=== PATIENT | female | born 1935 | race Caucasian/White ===

== ENCOUNTER 2016-12-07 15:47 | Emergency (ER) | payer MEDICARE ==
[2016-12-07] MEDS ORDERED: ONDANSETRON 4 MG/2ML 2 ML VIAL ONE ×2 (17:05→18:00)
[2016-12-07] MEDS ORDERED: SODIUM CHLORIDE 0.9% 1,000 ML ONE ×2 (17:05→18:41)
[2016-12-07] MEDS ORDERED: MORPHINE SULFATE 4 MG/ML SYRINGE ONE (17:05)
[2016-12-07 17:35] LABS: ABSOLUTE NEUTROPHIL COUNT 5.1 K/mm3 (1.8-7.7); BASO % 0.1 % (0.2-1.0); EOS % 0.5 % (0.9-2.9); HEMATOCRIT 36.7 % (37.0-47.0); HEMOGLOBIN 12.1 gm/l (12.0-16.0); IMM NEUT% 0.3 % (0-1); LYMPH # 1.7 (1.0-4.8); LYMPH % 23.3 % (15-45); MEAN CELL VOLUME 94.1 fl (81.0-99.0); MEAN PLATELET VOLUME 10.9 fl (7.4-10.4); MONO # 0.5 (0.0-0.8); MONO % 7.2 % (4-12); NEUT % 68.6 % (43-75); PLATELET COUNT 247 K/mm3 (130-400); RED CELL DISTRIBUTION WIDTH 13.3 % (11.5-14.5)
[2016-12-07 17:53] LABS: ALB/GLOB RATIO 1.6 (>1.0); ALBUMIN 4.4 gm/dL (3.5-5.7); CALCIUM 9.9 mg/dL (8.6-10.3)
--- NOTE | 2016-12-07 17:53 | CT ---
HEAD W/O CON COMPARISON: Head CT, 05/14/2008 HISTORY: Headache. Nausea and vomiting with body aches. TECHNIQUE: Using a [employer] [address] scanner, images were obtained through the head. An automated dose reduction technique was used to minimize patient radiation dose. DOSE INFORMATION: CTDIvol (mGy): 51.70 DLP(mGycm): 887.30 FINDINGS: Mass: None Intracranial Hemorrhage: None Acute Infarction: None Cerebral hemispheres: Moderate atrophy Basal ganglia: Normal Thalami: Normal Brainstem: Normal Cerebellum: Normal Ventricles: Moderate enlargement. Basilar cisterns: Normal Corpus callosum: Normal Pituitary fossa: Normal Middle ears and mastoid air cells: Normal Orbits and sinuses: Normal Skull and scalp: Normal Dural sinuses and vessels: Normal IMPRESSION: 1. Ventriculomegaly, either from hydrocephalus or moderate central cerebral atrophy. The report was sent to the emergency department electronic medical record system 12/07/2016 at 17:54
--- NOTE | 2016-12-07 18:04 | RAD ---
CHEST - 2 VIEWS COMPARISON: None. HISTORY: Headache, nausea, vomiting, and bodyaches FINDINGS: Views: Frontal and lateral chest Lungs: Normal Heart and vessels: Normal Trachea and bronchi: Normal Mediastinum and pascual: Normal Costophrenic sulci: Normal Chest wall and bones: Normal. Upper abdomen: Normal. IMPRESSION: Negative 2 view chest.
[2016-12-07 18:14] LABS: URINE BILIRUBIN NEGATIVE (NEGATIVE); URINE BLOOD NEGATIVE (NEGATIVE); URINE GLUCOSE (UA) NEGATIVE (NEGATIVE); URINE LEUKOCYTE ESTERASE TRACE (NEGATIVE); URINE NITRITE NEGATIVE (NEGATIVE); URINE PROTEIN NEGATIVE (NEGATIVE); URINE UROBILINOGEN NORMAL (0-1 mg/dl)
[2016-12-07 18:19] LABS: URINE APPEARANCE CLEAR; URINE COLOR YELLOW
[2016-12-07] MEDS ORDERED: METOCLOPRAMIDE HCL 5 MG/ML 2ML VIAL ONE (18:24)
[2016-12-07] MEDS ORDERED: LORAZEPAM 2 MG/ML 1ML SDV ONE (18:25)
[2016-12-07] MEDS ORDERED: KETOROLAC TROMETHAMINE 30 MG/ML 1 ML VIAL ONE (18:25)
[2016-12-07 18:30] LABS: URINE RBC RARE /hpf; URINE WBC RARE /hpf
[2016-12-07 18:31] LABS: URINE BACTERIA TRACE
== END 2016-12-07 19:46 | disposition home or self-care (01) ==
LOC: ED 15:47
DX: G43.909 Migraine, unspecified, not intractable, without status migrainosus (principal); R11.2 Nausea with vomiting, unspecified; E03.9 Hypothyroidism, unspecified; E78.5 Hyperlipidemia, unspecified; E78.00 Pure hypercholesterolemia, unspecified
CPT/HCPCS: 85025; 80053; 84484; 81001; 71020; 70450; 96375 ×4; 96376; 99284 ×2; 96374; 96361; 93005; J2060; J2270; J2765; J1885; J2405 ×2; J7030 ×2